=== PATIENT | male | born 1945 | race Caucasian/White ===

== ENCOUNTER → 2018-12-17 13:46 | Outpatient (BNVA) | payer MEDICARE, OTHER, SELFPAY | PROVIDERS: PCP Family Medicine; Visit Provider Nurse Practitioner Adult Health | DX: G56.03 Carpal tunnel syndrome, bilateral upper limbs (principal); G56.23 Lesion of ulnar nerve, bilateral upper limbs; I10 Essential (primary) hypertension | CPT/HCPCS: 95886; 95911; 99203 ==